=== PATIENT | male | born 1995 | race Two or more races ===

== ENCOUNTER 2017-10-28 00:22 | Emergency (ER) | payer OTHER, SELFPAY ==
[~2017-10-28] VITALS: Ht 170.2 cm; Wt 56.5 kg
[2017-10-28 01:03] LABS: CULTURE INDICATED? YES; MICROSCOPIC INDICATED
[2017-10-28] MEDS ORDERED: CEFTRIAXONE 250 MG IM ONE (01:30)
[2017-10-28] MEDS ORDERED: AZITHROMYCIN 500 MG TABLET PO ONE (01:30)
[2017-10-28] MEDS ORDERED: AZITHROMYCIN 250 MG TABLET ONE (01:31)
[2017-10-28] MEDS ORDERED: CEFTRIAXONE 250 MG ONE (01:31)
[2017-10-28 01:41] VITALS: BP 112/84
== END 2017-10-28 01:55 | disposition home or self-care (01) ==
LOC: ED 01:54
DX: N30.90 Cystitis, unspecified without hematuria (principal)
CPT/HCPCS: 81001; 87086; 87491; 87591; 96372; 99284; J0696

== ENCOUNTER 2020-09-03 12:15 | Emergency (ER) | payer OTHER ==
[~2020-09-03] VITALS: Ht 170.2 cm; Wt 61.6 kg
--- NOTE | 2020-09-03 12:36 | NUR ---
SECURITY CONTROLS ASSESSOR: PT AMBULATORY TO ROOM FROM LOBBY
[2020-09-03] MEDS ORDERED: KETOROLAC 30 MG/1 ML ONE (12:57)
[2020-09-03] MEDS ORDERED: KETOROLAC 30 MG/1 ML IVPush ONE (13:00)
[2020-09-03] MEDS ORDERED: SODIUM CHLORIDE 0.9% 1,000ML IVBOLUS ONE (13:00)
[2020-09-03] MEDS ORDERED: SODIUM CHLORIDE FLUSH 10ML SYR IVF ONE (13:00)
--- NOTE | 2020-09-03 13:00 | NUR ---
PIV PLACED, LABS DRAWN AND COLLECTED BY CUSTOMER PRICING MANAGER. TACTICAL AIR DEFENSE CONTROLLER, IVF RUNNING. XRAY COMPLETE. PT CONNECTED TO MONITORING. CALL LIGHT IN REACH. MARISEL.
[2020-09-03 13:08] LABS: BASOPHILS % (AUTO) 0 % (0-1); EOSINOPHILS % (AUTO) 0 % (1-7); LYMPHOCYTES % (AUTO) 7 % (22-44); MEAN CORPUSCULAR HEMOGLOBIN 30.9 pg (27.5-34.5); MEAN CORPUSCULAR HGB CONC 33.9 g/dL (33.2-36.2); MEAN PLATELET VOLUME 8.1 fL (7.4-10.4); MONOCYTES % (AUTO) 7 % (2-9); NEUTROPHILS % (AUTO) 87 % (42-75); PLATELET COUNT 237 x10^3/uL (130-400); RED BLOOD COUNT 5.57 x10^6/uL (4.38-5.82); RED CELL DISTRIBUTION WIDTH 13.6 % (9.4-14.8)
[2020-09-03 13:20] LABS: ALANINE AMINOTRANSFERASE 59 U/L (12-78); ALBUMIN 4.8 g/dL (3.4-5.0); ANION GAP 7 mmol/L (5-15); CALCIUM 9.3 mg/dL (8.5-10.1); CHLORIDE 107 mmol/L (98-107); CREATININE 0.87 mg/dL (0.7-1.3)
[2020-09-03 13:25] LABS: ALKALINE PHOSPHATASE 100 U/L (45-117); BILIRUBIN,TOTAL 0.9 mg/dL (0.2-1.0); TOTAL PROTEIN 9.5 g/dL (6.4-8.2); TROPONIN I < 0.015 ng/mL (0.000-0.045)
[2020-09-03 13:49] LABS: MD SCAN
[2020-09-03 13:55] LABS: MICROSCOPIC NOT IND
--- NOTE | 2020-09-03 14:08 | NUR ---
ALL RESULTS ARE BACK AT THIS TIME. CHART UP FOR RECHECK.
[2020-09-03 14:33] VITALS: BP 108/53
--- NOTE | 2020-09-03 15:07 | NUR ---
MD AT BEDSIDE TO UPDATE PT ON POC.
== END 2020-09-03 15:45 | disposition home or self-care (01) ==
LOC: ED 13:48
DX: U07.1 COVID-19 (principal); R07.9 Chest pain, unspecified; R00.0 Tachycardia, unspecified; I51.7 Cardiomegaly
CPT/HCPCS: 36415; 71045; 80053; 81003; 84145; 84484; 85025; 87635; 93005; 96361; 96374; 99285; J1885; J7030